=== PATIENT | female | born 2000 | race Caucasian/White ===

== ENCOUNTER → 2023-12-26 | Outpatient (CLI) | payer OTHER ==
[2023-12-26 16:43] LABS: Chol/HDL Ratio 2.78 Ratio; LDL Cholesterol,Calculated 73.1 mg/dL (0.0-131.0)
== END | disposition home or self-care (01) ==
LOC: LABWHC1 08:54
PROVIDERS: ATTEND Nurse Practitioner
DX: E78.5 Hyperlipidemia, unspecified (principal); E55.9 Vitamin D deficiency, unspecified; F32.A Depression, unspecified
CPT/HCPCS: 36415; 80061; 82306

== ENCOUNTER 2024-11-03 19:37 | Emergency (ER) | payer OTHER ==
[2024-11-03 19:53] VITALS: RESP 18; TEMP 99.3
--- NOTE | 2024-11-03 20:13 | ED ---
ENT HPI - General Chief complaint: ENT Stated complaint: Left ear swelling Time Seen by Provider: 11/03/24 19:39 Source: patient, RN notes reviewed Mode of arrival: ambulatory Limitations: no limitations - History of Present Illness Initial comments: 24-year-old female presents emergency department chief complaint of left ear pain. Patient states that she has swelling of the earlobe she states that she has had gauged ears since she was 15. Patient states that there is some swelling and she occasionally gets infections. Patient denies any fevers chills no drainage no other complaints. - Related Data Previous Rx's Medication Instructions Recorded Albuterol Inhaler [Ventolin 1 - 2 puff INHALATION Q6HR PRN #1 02/11/16 Inhaler] inhaler Amoxicillin/Potassium Clav 1 each PO Q12HR #20 tab 02/11/16 [Augmentin 875-125 Tablet] Nystatin 100,000Unit/gm Cream 1 applic TOPICAL BID #45 gm 02/11/16 [Mycostatin Cream] predniSONE [Deltasone] 20 mg PO BID #8 tab 02/11/16 Ibuprofen [Motrin] 600 mg PO Q8HR PRN #20 tab 11/03/24 Sulfamethox-Tmp 800-160Mg [Bactrim 1 each PO Q12HR #20 tab 11/03/24 Ds] Allergies Allergy/AdvReac Type Severity Reaction Status Date / Time cephalexin monohydrate Allergy Unknown Verified 11/03/24 19:53 [From Keflex] Review of Systems ROS Statement: Those systems with pertinent positive or pertinent negative responses have been documented in the HPI. ROS Other: All systems not noted in ROS Statement are negative. Past Medical History Past Medical History: No Reported History History of Any Multi-Drug Resistant Organisms: None Reported Past Surgical History: No Surgical Hx Reported Past Psychological History: Anxiety, Depression Smoking Status: Former smoker, Vaper Past Alcohol Use History: None Reported Past Drug Use History: None Reported General Exam Limitations: no limitations General appearance: alert, in no apparent distress Head exam: Present: atraumatic, normocephalic, normal inspection Eye exam: Present: normal appearance, PERRL, EOMI. Absent: scleral icterus, conjunctival injection, periorbital swelling ENT exam: Present: normal oropharynx, mucous membranes moist, TM's normal bilaterally. Absent: normal external ear exam (Earlobe there is significant erythema, swelling around gauged piercing) Neck exam: Present: normal inspection, full ROM. Absent: tenderness, meningismus, lymphadenopathy Respiratory exam: Present: normal lung sounds bilaterally. Absent: respiratory distress, wheezes, rales, rhonchi, stridor Cardiovascular Exam: Present: regular rate, normal rhythm, normal heart sounds. Absent: systolic murmur, diastolic murmur, rubs, gallop, clicks Course Vital Signs 11/03/24 11/03/24 19:52 20:25 Temperature 99.3 F Pulse Rate 89 90 Respiratory 18 18 Rate Blood Pressure 124/85 129/87 O2 Sat by Pulse 99 99 Oximetry Medical Decision Making - Medical Decision Making Was pt. sent in by a medical professional or institution (POOJA Masters, G[employer] BURNISHER, urgent care, hospital, or group home...) When possible be specific @ -No Did you speak to anyone other than the patient for history (EMS, parent, family, police, friend...)? What history was obtained from this source @ -No Did you review nursing and triage notes (agree or disagree)? Why? @ -I reviewed and agree with nursing and triage notes Were old charts reviewed (outside hosp., previous admission, EMS record, old EKG, old radiological studies, urgent care reports/EKG's, group home records)? Report findings @ -No old charts were reviewed Differential Diagnosis (chest pain, altered mental status, abdominal pain women, abdominal pain men, vaginal bleeding, weakness, fever, dyspnea, syncope, headache, dizziness, GI bleed, back pain, seizure, CVA, palpatations, mental health, musculoskeletal)? @ -Cellulitis, otitis externa otitis media, abscess EKG interpreted by me (3pts min.). @ -None X-rays interpreted by me (1pt min.). @ -None done CT interpreted by me (1pt min.). @ -None done U/S interpreted by me (1pt. min.). @ -None done What testing was considered but not performed or refused? (CT, X-rays, U/S, labs)? Why? @ -None What meds were considered but not given or refused? Why? @ -None Did you discuss the management of the patient with other professionals (professionals i.e. POOJA Masters, GOLD BURNISHER, lab, RT, psych nurse, social work faculty member, dog and cat food cook, teacher, canine enforcement officer, casework specialist)? Give summary @ -No Was smoking cessation discussed for >3mins.? @ -No Was critical care preformed (if so, how long)? @ -No Were there social determinants of health that impacted care today? How? (Homelessness, low income, unemployed, alcoholism, drug addiction, transportation, low edu. Level, literacy, decrease access to med. care, [facility], rehab)? @ -No Was there de-escalation of care discussed even if they declined (Discuss DNR or withdrawal of care, Hospice)? DNR status @ -No What co-morbidities impacted this encounter? (DM, HTN, Smoking, COPD, CAD, Cancer, CVA, ARF, Chemo, Hep., AIDS, mental health diagnosis, sleep apnea, morbid obesity)? @ -None Was patient admitted / discharged? Hospital course, mention meds given and route, prescriptions, significant lab abnormalities, going to OR and other pertinent info. @ -Discharge patient has left earlobe cellulitis to be discharged Bactrim as she has allergy to Keflex return parens discussed. Undiagnosed new problem with uncertain prognosis? @ -No Drug Therapy requiring intensive monitoring for toxicity (Heparin, Nitro, Insulin, Cardizem)? @ -No Were any procedures done? @ -No Diagnosis/symptom? @ -Earlobe cellulitis left Acute, or Chronic, or Acute on Chronic? @ -Acute Uncomplicated (without systemic symptoms) or Complicated (systemic symptoms)? @ -Uncomplicated Side effects of treatment? @ -No Exacerbation, Progression, or Severe Exacerbation? @ -No Poses a threat to life or bodily function? How? (Chest pain, [place], [place], pneumonia, PE, COPD, DKA, ARF, appy, cholecystitis, CVA, Diverticulitis, Homicidal, Suicidal, threat to staff... and all critical care pts) @ -No Disposition Clinical Impression: Cellulitis of earlobe Disposition: HOME SELF-CARE Condition: Stable Instructions (If sedation given, give patient instructions): Cellulitis (ED) Additional Instructions: Please return to the Emergency Department if symptoms worsen or any other concerns. Prescriptions: Sulfamethox-Tmp 800-160Mg [Bactrim Ds] 1 each PO Q12HR #20 tab Ibuprofen [Motrin] 600 mg PO Q8HR PRN #20 tab PRN Reason: Pain Is patient prescribed a controlled substance at d/c from ED?: No Referrals: None,Stated [REFERRING] - 1-2 days Time of Disposition: 20:13
[2024-11-03] MEDS: IBUPROFEN 600 MG TAB PO STA (20:22)
[2024-11-03] MEDS: SULFAMETHOX-TMP 800-160MG 1 EACH TAB PO STA (20:22)
[2024-11-03 20:28] VITALS: BP 129/87; PULSE 90
== END 2024-11-03 20:25 | disposition home or self-care (01) ==
LOC: EC 19:37
DX: H60.12 Cellulitis of left external ear (principal); F17.290 Nicotine dependence, other tobacco product, uncomplicated; Z88.1 Allergy status to other antibiotic agents
CPT/HCPCS: 99282

== ENCOUNTER 2025-03-30 08:25 | Emergency (ER) | payer OTHER ==
[2025-03-30 10:36] LABS: Basophils % (A) 2.1 %; Eosinophils # (A) 0.22 10*3/uL (0.04-0.35); Eosinophils % (A) 4.6 %; HCT 36.9 % (37.2-46.3); HGB 13.4 g/dL (12.0-15.0); Lymphocytes # (A) 1.34 10*3/uL (0.90-5.00); Lymphocytes % (A) 27.9 %; MCH 30.5 pg (27.0-32.0); MCHC 36.3 g/dL (32.0-37.0); MCV 83.9 fL (80.0-97.0); Monocytes # (A) 0.45 10*3/uL (0.20-1.00); Monocytes % (A) 9.4 %; Neutrophils # (A) 2.69 10*3/uL (1.80-7.70); Platelet Count 196 10*3/uL (140-440); RDW 11.9 % (11.5-14.5)
[2025-03-30 10:42] LABS: Appearance,Urine Clear (Clear); Bilirubin,Urine Negative (Negative); Blood,Urine Negative (Negative); Color,Urine Yellow; Glucose,Urine (UA) Negative (Negative); Ketones,Urine Negative (Negative); Leukocyte Esterase,Urine Negative (Negative); Nitrite,Urine Negative (Negative); PH, Urine 5.5 (5.0-8.0); Protein,Urine Negative (Negative); Specific Gravity,Urine 1.027 (1.001-1.035); Urobilinogen,Urine <2.0 mg/dL (<2.0)
[2025-03-30 10:46] LABS: Partial Thromboplastin Time 25.9 sec (22.0-30.0)
[2025-03-30 10:52] LABS: ALT 14 U/L (4-34); AST 17 U/L (14-36); African American GFR (CKD) >90 (>60 ml/min/1.73 sqM); Albumin 4.2 g/dL (3.5-5.0); Alkaline Phosphatase 51 U/L (38-126); Anion Gap 8 mmol/L; Blood Urea Nitrogen 12 mg/dL (7-17); Calcium 9.6 mg/dL (8.4-10.2); Carbon Dioxide 25 mmol/L (22-30); Chloride 106 mmol/L (98-107); Glucose 113 mg/dL (74-99); Non-African American GFR(CKD) >90 (>60 ml/min/1.73 sqM); Potassium 4.1 mmol/L (3.5-5.1); Sodium 139 mmol/L (137-145); Total Bilirubin 0.5 mg/dL (0.2-1.3)
[2025-03-30 11:06] LABS: HCG,Quantitative Serum <2.4 mIU/mL
--- NOTE | 2025-03-30 11:13 | US ---
EXAMINATION TYPE: US transvaginal DATE OF EXAM: 03/30/2025 COMPARISON: NONE CLINICAL INDICATION: Female, 24 years old with history of dysfunctional uterine bleeding after plan b ; Three periods this month, dark menses, left side pain, Hx HPV TECHNIQUE: Transvaginal (TV). Transvaginal sonographic images were medically necessary to better assess the following anatomy: Ovar ies Doppler imaging: Color Doppler Images were obtained. Spectral doppler images were obtained. FINDINGS: Date of LMP: 03/18/25 EXAM MEASUREMENTS: Uterus: 7.7x3.9x6.1 cm Endometrial Stripe: 0.1 cm Right Ovary: 4.8x1.9x3.8 cm Left Ovary: 5.3x1.6x2.8 cm 1. Uterus: Anteverted wnl 2. Endometrium: wnl 3. Right Ovary: wnl 4. Left Ovary: large cystic area: 4.3x3.2x4.0cm Spectral, color and waveform doppler imaging shows good arterial and venous flow within the ovaries ; there is no evidence for ovarian torsion. 5. Bilateral Adnexa: wnl 6. Posterior cul-de-sac: wnl Anteverted uterus without focal lesion. Endometrium is within normal limits. Right ovary appears unre markable. Simple appearing left ovarian cyst measuring up to 4.3 cm. Normal color Doppler flow with a rterial venous waveforms within both ovaries. No evidence for torsion. No free fluid. IMPRESSION: 1. No ultrasound evidence for acute process. 2. Left ovarian simple cyst measuring up to 4.3 cm. No follow-up recommended. [facility], , 03/30/2025 11:11 AM
[2025-03-30 12:35] VITALS: BP 115/70; PULSE 76; RESP 18; TEMP 98.3
--- NOTE | 2025-03-30 12:37 | ED ---
General Adult HPI <Lucia Francis - Last Filed: 03/30/25 12:48> - General Source: patient, RN notes reviewed, old records reviewed Mode of arrival: ambulatory Limitations: no limitations <Jared Roberts - Last Filed: 03/30/25 15:54> - General Chief complaint: Vaginal Bleeding Stated complaint: abn vaginal bleeding Time Seen by Provider: 03/30/25 09:30 - History of Present Illness Initial comments: Patient is a 24-year-old female presents emergency department complaining of dysfunctional vaginal bleeding since she took Plan B approximately 1 month ago. He has been having 3 periods total since that time. He has not follow-up with an SHOT CORE DRILL OPERATOR HELPER. Denies any other acute complaints. Was seen in the walk-in clinic where they did send off swabs however unknown results at this time. States the bleeding has subsided this time but was present for a few days. States that seemed darker than normal. Presents to be evaluated further at this time. Denies any chest pain, shortness of breath, abdominal pain, nausea, vomiting. Denies any history of STIs. Denies any pus or vaginal discharge otherwise. Denies any urinary complaints. Presents for further evaluation.Patient is G1, P1. (Jared Roberts) - Related Data Previous Rx's Medication Instructions Recorded Albuterol Inhaler [Ventolin 1 - 2 puff INHALATION Q6HR PRN #1 02/11/16 Inhaler] inhaler Amoxicillin/Potassium Clav 1 each PO Q12HR #20 tab 02/11/16 [Augmentin 875-125 Tablet] Nystatin 100,000Unit/gm Cream 1 applic TOPICAL BID #45 gm 02/11/16 [Mycostatin Cream] predniSONE [Deltasone] 20 mg PO BID #8 tab 02/11/16 Ibuprofen [Motrin] 600 mg PO Q8HR PRN #20 tab 11/03/24 Sulfamethox-Tmp 800-160Mg [Bactrim 1 each PO Q12HR #20 tab 11/03/24 Ds] Allergies Allergy/AdvReac Type Severity Reaction Status Date / Time cephalexin monohydrate Allergy Unknown Verified 03/30/25 08:32 [From Keflex] Review of Systems ROS Other: All systems not noted in ROS Statement are negative. <Lucia Francis - Last Filed: 03/30/25 12:48> ROS Other: All systems not noted in ROS Statement are negative. <ArmandoJared - Last Filed: 03/30/25 15:54> ROS Statement: Those systems with pertinent positive or pertinent negative responses have been documented in the HPI. Past Medical History Past Medical History: No Reported History History of Any Multi-Drug Resistant Organisms: None Reported Past Surgical History: Adenoidectomy, Section, Tonsillectomy Additional Past Surgical History / Comment(s): oral Past Psychological History: Anxiety, Depression Smoking Status: Former smoker, Vaper Past Alcohol Use History: None Reported Past Drug Use History: Marijuana <ArmandoJared - Last Filed: 03/30/25 15:54> General Exam External exam: Present: normal external exam. Absent: erythema, swelling, lesions, lacerations Speculum exam: Present: normal speculum exam. Absent: erythema, vaginal discharge, cervical discharge, vaginal bleeding <Lucia Francis - Last Filed: 03/30/25 12:48> Limitations: no limitations <Jared Roberts - Last Filed: 03/30/25 15:54> Course Vital Signs 03/30/25 03/30/25 08:27 12:33 Temperature 97.5 F L 98.3 F Pulse Rate 78 76 Respiratory 17 18 Rate Blood Pressure 120/80 115/70 O2 Sat by Pulse 100 Oximetry Medical Decision Making - Lab Data Result diagrams: 03/30/25 10:22 03/30/25 10:22 <Lucia Francis - Last Filed: 03/30/25 12:48> - Lab Data Result diagrams: 03/30/25 10:22 03/30/25 10:22 <Jared Roberts - Last Filed: 03/30/25 15:54> - Medical Decision Making Was pt. sent in by a medical professional or institution (, PA, EDITORIAL PROJECT MANAGER, urgent care, hospital, or detention...) When possible be specific @ -No Did you speak to anyone other than the patient for history (EMS, parent, family, police, friend...)? What history was obtained from this source @ -No Did you review nursing and triage notes (agree or disagree)? Why? @ -I reviewed and agree with nursing and triage notes Were old charts reviewed (outside hosp., previous admission, EMS record, old EKG, old radiological studies, urgent care reports/EKG's, detention records)? Report findings @ -No old charts were reviewed Differential Diagnosis (chest pain, altered mental status, abdominal pain women, abdominal pain men, vaginal bleeding, weakness, fever, dyspnea, syncope, headache, dizziness, GI bleed, back pain, seizure, CVA, palpatations, mental health, musculoskeletal)? @ -Dysfunctional uterine bleeding, , dehydration, anemia. This list is not all inclusive. EKG interpreted by me (3pts min.). @ -None done X-rays interpreted by me (1pt min.). @ -None done CT interpreted by me (1pt min.). @ -None done U/S interpreted by me (1pt. min.). @ -Ultrasound revealed no obvious acute process of the uterus but patient does have a simple ovarian cyst on the left. What testing was considered but not performed or refused? (CT, X-rays, U/S, labs)? Why? @ -None What meds were considered but not given or refused? Why? @ -None Did you discuss the management of the patient with other professionals (professionals i.e. , PA, EDITORIAL PROJECT MANAGER, lab, RT, psych nurse, child welfare social worker, soft metals hand engraver, teacher, third officer, behavioral health case manager)? Give summary @ -No Was smoking cessation discussed for >3mins.? @ -No Was critical care preformed (if so, how long)? @ -No Were there social determinants of health that impacted care today? How? (Homelessness, low income, unemployed, alcoholism, drug addiction, transportation, low edu. Level, literacy, decrease access to med. care, [facility], rehab)? @ -No Was there de-escalation of care discussed even if they declined (Discuss DNR or withdrawal of care, Hospice)? DNR status @ -No What co-morbidities impacted this encounter? (DM, HTN, Smoking, COPD, CAD, Cancer, CVA, ARF, Chemo, Hep., AIDS, mental health diagnosis, sleep apnea, morbid obesity)? @ -None Was patient admitted / discharged? Hospital course, mention meds given and route, prescriptions, significant lab abnormalities, going to OR and other pertinent info. @ -Presents for dysfunctional uterine bleeding. We will obtain basic labs as well as transvaginal ultrasound and pelvic exam. Patient was in agreement this plan. Pelvic exam completed by midlevel provider who reports normal pelvic exam without any obvious abnormalities. Swabs obtained and sent. Laboratory studies are unremarkable. Ultrasound is remarkable for a simple left ovarian cyst and otherwise unremarkable. At this time, I updated patient. No evidence of bleeding or any other obvious acute process at this time. I believe it is safer to follow-up with SHOT CORE DRILL OPERATOR HELPER. She was in agreement this plan. Recommend she continue with her control. She was in agreement this plan. I instructed the patient to follow up with their PCP in the next 1-3 days. I explained that the patient should return to the emergency department if they experience any worsening symptoms. Strict return precautions were discussed with the patient. The patient expressed understanding of these instructions. I answered all questions that the patient had. The patient was discharged home in good condition with their prescriptions and follow up information. Undiagnosed new problem with uncertain prognosis? @ -No Drug Therapy requiring intensive monitoring for toxicity (Heparin, Nitro, Insulin, Cardizem)? @ -No Were any procedures done? @ -No Diagnosis/symptom? @ -Dysfunctional uterine bleeding Acute, or Chronic, or Acute on Chronic? @ -Acute Uncomplicated (without systemic symptoms) or Complicated (systemic symptoms)? @ -Uncomplicated Side effects of treatment? @ -No Exacerbation, Progression, or Severe Exacerbation? @ -No Poses a threat to life or bodily function? How? (Chest pain, [place], [place], pneumonia, PE, COPD, DKA, ARF, appy, cholecystitis, CVA, Diverticulitis, Homicidal, Suicidal, threat to staff... and all critical care pts) @ -Unlikely at this time (Jaerd Roberts) - Lab Data Lab Results 03/30/25 03/30/25 03/30/25 Range/Units 10:10 10:15 10:22 WBC 4.80 (4.50-10.00) 10*3/uL RBC 4.40 (4.10-5.20) 10*6/uL Hgb 13.4 (12.0-15.0) g/dL Hct 36.9 L (37.2-46.3) % MCV 83.9 (80.0-97.0) fL MCH 30.5 (27.0-32.0) pg MCHC 36.3 (32.0-37.0) g/dL Plt Count 196 (140-440) 10*3/uL MPV 12.0 (9.5-12.2) fL Immature Gran % (Auto) 0 % Neutrophils % 56.0 % Lymphocytes % 27.9 % Monocytes % 9.4 % Eosinophils % 4.6 % Basophils % 2.1 % Immature Gran # 0.00 (0.00-0.04) 10*3/uL Neutrophils # 2.69 (1.80-7.70) 10*3/uL Lymphocytes # 1.34 (0.90-5.00) 10*3/uL Monocytes # 0.45 (0.20-1.00) 10*3/uL Eosinophils # 0.22 (0.04-0.35) 10*3/uL Basophils # 0.10 (0.00-0.10) 10*3/uL PT (10.0-12.5) sec INR (<1.2) APTT (22.0-30.0) sec Sodium (137-145) mmol/L Potassium (3.5-5.1) mmol/L Chloride (98-107) mmol/L Carbon Dioxide (22-30) mmol/L Anion Gap mmol/L BUN (7-17) mg/dL Creatinine (0.52-1.04) mg/dL Est GFR (CKD-EPI)AfAm (>60 ml/min/1.73 sqM) Est GFR (CKD-EPI)NonAf (>60 ml/min/1.73 sqM) Glucose (74-99) mg/dL Plasma Lactic Acid Celso (0.7-2.0) mmol/L Calcium (8.4-10.2) mg/dL Total Bilirubin (0.2-1.3) mg/dL AST (14-36) U/L ALT (4-34) U/L Alkaline Phosphatase (38-126) U/L Total Protein (6.3-8.2) g/dL Albumin (3.5-5.0) g/dL HCG, Quant mIU/mL Urine Color Urine Appearance (Clear) Urine pH (5.0-8.0) Ur Specific [place] (1.001-1.035) Urine Protein (Negative) Urine Glucose (UA) (Negative) Urine Ketones (Negative) Urine Blood (Negative) Urine Nitrite (Negative) Urine Bilirubin (Negative) Urine Urobilinogen (<2.0) mg/dL Ur Leukocyte Esterase (Negative) Trichomonas Ag (Rapid) (Negative) Blood Type O Positive Blood Type Confirm O Positive Blood Type Recheck No Previous Record Bld Type Recheck Status CABO Indicated Antibody Screen NEGATIVE Spec Expiration Date 04/02/2025 - 232103/30/25 03/30/25 03/30/25 Range/Units 10:22 10:22 10:22 WBC (4.50-10.00) 10*3/uL RBC (4.10-5.20) 10*6/uL Hgb (12.0-15.0) g/dL Hct (37.2-46.3) % MCV (80.0-97.0) fL MCH (27.0-32.0) pg MCHC (32.0-37.0) g/dL Plt Count (140-440) 10*3/uL MPV (9.5-12.2) fL Immature Gran % (Auto) % Neutrophils % % Lymphocytes % % Monocytes % % Eosinophils % % Basophils % % Immature Gran # (0.00-0.04) 10*3/uL Neutrophils # (1.80-7.70) 10*3/uL Lymphocytes # (0.90-5.00) 10*3/uL Monocytes # (0.20-1.00) 10*3/uL Eosinophils # (0.04-0.35) 10*3/uL Basophils # (0.00-0.10) 10*3/uL PT 11.0 (10.0-12.5) sec INR 1.0 (<1.2) APTT 25.9 (22.0-30.0) sec Sodium 139 (137-145) mmol/L Potassium 4.1 (3.5-5.1) mmol/L Chloride 106 (98-107) mmol/L Carbon Dioxide 25 (22-30) mmol/L Anion Gap 8 mmol/L BUN 12 (7-17) mg/dL Creatinine 0.55 (0.52-1.04) mg/dL Est GFR (CKD-EPI)AfAm >90 (>60 ml/min/1.73 sqM) Est GFR (CKD-EPI)NonAf >90 (>60 ml/min/1.73 sqM) Glucose 113 H (74-99) mg/dL Plasma Lactic Acid Celso 1.7 (0.7-2.0) mmol/L Calcium 9.6 (8.4-10.2) mg/dL Total Bilirubin 0.5 (0.2-1.3) mg/dL AST 17 (14-36) U/L ALT 14 (4-34) U/L Alkaline Phosphatase 51 (38-126) U/L Total Protein 7.0 (6.3-8.2) g/dL Albumin 4.2 (3.5-5.0) g/dL HCG, Quant <2.4 mIU/mL Urine Color Urine Appearance (Clear) Urine pH (5.0-8.0) Ur Specific [place] (1.001-1.035) Urine Protein (Negative) Urine Glucose (UA) (Negative) Urine Ketones (Negative) Urine Blood (Negative) Urine Nitrite (Negative) Urine Bilirubin (Negative) Urine Urobilinogen (<2.0) mg/dL Ur Leukocyte Esterase (Negative) Trichomonas Ag (Rapid) (Negative) Blood Type Blood Type Confirm Blood Type Recheck Bld Type Recheck Status Antibody Screen Spec Expiration Date 03/30/25 03/30/25 Range/Units 10:22 12:30 WBC (4.50-10.00) 10*3/uL RBC (4.10-5.20) 10*6/uL Hgb (12.0-15.0) g/dL Hct (37.2-46.3) % MCV (80.0-97.0) fL MCH (27.0-32.0) pg MCHC (32.0-37.0) g/dL Plt Count (140-440) 10*3/uL MPV (9.5-12.2) fL Immature Gran % (Auto) % Neutrophils % % Lymphocytes % % Monocytes % % Eosinophils % % Basophils % % Immature Gran # (0.00-0.04) 10*3/uL Neutrophils # (1.80-7.70) 10*3/uL Lymphocytes # (0.90-5.00) 10*3/uL Monocytes # (0.20-1.00) 10*3/uL Eosinophils # (0.04-0.35) 10*3/uL Basophils # (0.00-0.10) 10*3/uL PT (10.0-12.5) sec INR (<1.2) APTT (22.0-30.0) sec Sodium (137-145) mmol/L Potassium (3.5-5.1) mmol/L Chloride (98-107) mmol/L Carbon Dioxide (22-30) mmol/L Anion Gap mmol/L BUN (7-17) mg/dL Creatinine (0.52-1.04) mg/dL Est GFR (CKD-EPI)AfAm (>60 ml/min/1.73 sqM) Est GFR (CKD-EPI)NonAf (>60 ml/min/1.73 sqM) Glucose (74-99) mg/dL Plasma Lactic Acid Celso (0.7-2.0) mmol/L Calcium (8.4-10.2) mg/dL Total Bilirubin (0.2-1.3) mg/dL AST (14-36) U/L ALT (4-34) U/L Alkaline Phosphatase (38-126) U/L Total Protein (6.3-8.2) g/dL Albumin (3.5-5.0) g/dL HCG, Quant mIU/mL Urine Color Yellow Urine Appearance Clear (Clear) Urine pH 5.5 (5.0-8.0) Ur Specific [place] 1.027 (1.001-1.035) Urine Protein Negative (Negative) Urine Glucose (UA) Negative (Negative) Urine Ketones Negative (Negative) Urine Blood Negative (Negative) Urine Nitrite Negative (Negative) Urine Bilirubin Negative (Negative) Urine Urobilinogen <2.0 (<2.0) mg/dL Ur Leukocyte Esterase Negative (Negative) Trichomonas Ag (Rapid) Negative (Negative) Blood Type Blood Type Confirm Blood Type Recheck Bld Type Recheck Status Antibody Screen Spec Expiration Date Disposition <Lucia Francis - Last Filed: 03/30/25 12:48> Is patient prescribed a controlled substance at d/c from ED?: No Time of Disposition: 13:15 <Jared Roberts - Last Filed: 03/30/25 15:54> Clinical Impression: Dysfunctional uterine bleeding Disposition: HOME SELF-CARE Condition: Good Instructions (If sedation given, give patient instructions): Dysmenorrhea (ED) Referrals: Tano Patton [Primary Care Provider] - 1-2 days Yarely Banks MD [STAFF PHYSICIAN] - 1-2 days
[2025-03-31 14:26] LABS: C. trachomatis,PCR Negative (Negative)
[2025-03-31 14:35] LABS: N. gonorrhoeae,PCR Negative (Negative)
== END 2025-03-30 13:31 | disposition home or self-care (01) ==
LOC: EC 08:25
DX: N93.8 Other specified abnormal uterine and vaginal bleeding (principal); F17.290 Nicotine dependence, other tobacco product, uncomplicated; Z88.1 Allergy status to other antibiotic agents
CPT/HCPCS: 36415; 76830; 80053; 81003; 83605; 84702; 85025; 85610; 85730; 86850; 86900; 86901; 87070; 87491; 87591; 87808; 93975; 99284